=== PATIENT | male | born 1980 | race Caucasian/White ===

== ENCOUNTER 2016-09-17 08:09 | Emergency (ER) | payer OTHER ==
[2016-09-17 09:02] LABS: BASOPHILS 0.5 % (0.0-2.0); HEMATOCRIT 46.5 % (42.0-54.0); HEMOGLOBIN 16.2 g/dL (13.5-17.5); IMMATURE GRANULOCYTES 0.3 % (0-5); MCHC 34.8 g/dL (31.0-37.0); MCV 91.7 fL (80.0-100.0); MEAN PLATELET VOLUME 10.5 fL (7.4-10.4); MONOCYTES 7.5 % (2-11); NEUTROPHILS 37.7 % (40-80); PLATELET COUNT 199 10x3/uL (130-400); RBC 5.07 10x6/uL (4.20-6.10); RDW 12.4 % (11.5-14.5); WBC 7.5 10x3/uL (4.8-10.8)
[2016-09-17 09:32] LABS: APPEARANCE CLEAR (CLEAR); BILIRUBIN NEGATIVE (NEGATIVE); COLOR YELLOW (YELLOW); GLUCOSE NEGATIVE (NEGATIVE); KETONE NEGATIVE (NEGATIVE); LEUKOCYTE ESTERASE NEGATIVE (NEGATIVE); NITRITE NEGATIVE (NEGATIVE); PROTEIN TRACE mg/dL (NEGATIVE); UROBILINOGEN NORMAL (NORMAL)
[2016-09-17 09:34] LABS: WHITE CELLS - URINE 0-5 /hpf (0-5)
[2016-09-17 09:35] LABS: BACTERIA NONE SEEN /hpf (NONE SEEN); EPITHELIAL CELLS 0-5 /hpf (0-5); RED CELLS - URINE 0-5 /hpf (0-5)
== END 2016-09-17 11:38 | disposition home or self-care (01) ==
LOC: D.ER 08:09
PROVIDERS: Emergency Medicine
DX: R10.9 Unspecified abdominal pain (principal)

== ENCOUNTER → 2016-09-21 09:12 | Outpatient (CLI) | payer OTHER | END | disposition home or self-care (01) | LOC: D.MRI 09:12 | DX: M54.16 Radiculopathy, lumbar region (principal) ==

== ENCOUNTER 2018-02-07 19:03 | Emergency (ER) | payer SELFPAY ==
[~2018-02-07] VITALS: Ht 180.3 cm; Wt 127.3 kg
[2018-02-07 19:25] VITALS: Ht 180.3 cm; Wt 127.3 kg
[2018-02-07] MEDS ORDERED: ULTRAM50 MG PO (19:26)
[2018-02-07] MEDS ORDERED: ALLERGY MEDS (19:27)
[2018-02-07] MEDS ORDERED: ROBAXIN500 MG PO (19:27)
[2018-02-07] MEDS ORDERED: GENTAMICIN 0.3 %5 ML EACH EYE (22:19)
[2018-02-07 22:36] VITALS: BP 148/82
== END 2018-02-07 22:30 | disposition home or self-care (01) ==
LOC: D.ER 19:03
DX: K13.0 Diseases of lips (principal); H10.32 Unspecified acute conjunctivitis, left eye; F17.200 Nicotine dependence, unspecified, uncomplicated

== ENCOUNTER 2018-06-18 21:45 | Emergency (ER) | payer SELFPAY ==
[~2018-06-18] VITALS: Ht 180.3 cm; Wt 127.3 kg
[~2018-06-18 21:45] MED LIST: ALLERGY MEDS; GENTAMICIN 0.3 %5 ML EACH EYE; ROBAXIN500 MG PO; ULTRAM50 MG PO
[2018-06-18 21:56] VITALS: Ht 180.3 cm; Wt 127.3 kg
[2018-06-18 23:15] LABS: BASOPHILS 0.4 % (0-2); EOSINOPHILS 2.4 % (0-7); HEMATOCRIT 48.3 % (42.0-54.0); IMMATURE GRANULOCYTES 0.3 % (0-5); LYMPHOCYTES 25.1 % (15-50); MCHC 35.2 g/dL (31.0-37.0); MEAN PLATELET VOLUME 9.8 fL (7.4-10.4); MONOCYTES 8.3 % (2-11); NEUTROPHILS 63.5 % (40-80); RBC 5.31 10x6/uL (4.20-6.10); RDW 12.8 % (11.5-14.5); WBC 12.8 10x3/uL (4.8-10.8)
[2018-06-18 23:16] LABS: PLATELET COUNT 254 10x3/uL (130-400)
[2018-06-18 23:26] LABS: ALBUMIN 3.6 g/dL (3.4-5.0); ALKALINE PHOSPHATASE 64 U/L (46-116); ALT (SGPT) 35 U/L (10-68); BILIRUBIN - TOTAL 0.29 mg/dL (0.2-1.3); CALC OSMOLALITY 273 mosm/kg (275-300); CALCIUM 8.6 mg/dL (8.5-10.1); CARBON DIOXIDE 28.4 mmol/L (21.0-32.0); CHLORIDE - SERUM 101 mmol/L (98-107); CREATININE - SERUM 0.9 mg/dL (0.6-1.3); GLUCOSE 99 mg/dL (74-106); POTASSIUM - SERUM 3.9 mmol/L (3.5-5.1); PROTEIN - SERUM 7.5 g/dL (6.4-8.2); SODIUM 137 mmol/L (136-145); UREA NITROGEN 12 mg/dL (7-18); eGFR NON AFRICAN AMERICAN > 90 mL/min (90-120)
[2018-06-18] MEDS ORDERED: CLEOCIN HCL300 MG PO (23:29)
[2018-06-18] MEDS ORDERED: ULTRAM50 MG PO (23:31)
[2018-06-19 00:23] VITALS: BP 153/87
== END 2018-06-19 00:25 | disposition home or self-care (01) ==
LOC: D.ER 21:45
PROVIDERS: Family Medicine
DX: L02.416 Cutaneous abscess of left lower limb (principal); F17.200 Nicotine dependence, unspecified, uncomplicated

== ENCOUNTER 2018-08-08 17:41 | Emergency (ER) | payer SELFPAY ==
[~2018-08-08] VITALS: Ht 180.3 cm; Wt 129.5 kg
[~2018-08-08 17:41] MED LIST changes: +CLEOCIN HCL300 MG PO
[2018-08-08 17:56] VITALS: Ht 180.3 cm; Wt 129.5 kg
[2018-08-08] MEDS ORDERED: FEXOFENADINE HC60 MG PO (17:58)
[2018-08-08] MEDS ORDERED: SEROQUEL50 MG PO (17:58)
[2018-08-08 18:30] LABS: BASOPHILS 0.1 % (0-2); EOSINOPHILS 1.2 % (0-7); HEMATOCRIT 48.1 % (42.0-54.0); HEMOGLOBIN 17.1 g/dL (13.5-17.5); IMMATURE GRANULOCYTES 0.2 % (0-5); LYMPHOCYTES 12.3 % (15-50); MCH 32.1 pg (26.0-34.0); MCHC 35.6 g/dL (31.0-37.0); MCV 90.2 fL (80.0-100.0); MEAN PLATELET VOLUME 10.2 fL (7.4-10.4); MONOCYTES 5.2 % (2-11); RBC 5.33 10x6/uL (4.20-6.10); RDW 12.6 % (11.5-14.5); WBC 9.7 10x3/uL (4.8-10.8)
[2018-08-08 18:32] LABS: PLATELET COUNT 191 10x3/uL (130-400)
[2018-08-08 18:45] LABS: ALBUMIN 3.2 g/dL (3.4-5.0); ALKALINE PHOSPHATASE 54 U/L (46-116); ALT (SGPT) 37 U/L (10-68); BILIRUBIN - TOTAL 0.85 mg/dL (0.2-1.3); CALC OSMOLALITY 274 mosm/kg (275-300); CALCIUM 7.7 mg/dL (8.5-10.1); CARBON DIOXIDE 24.8 mmol/L (21.0-32.0); CHLORIDE - SERUM 102 mmol/L (98-107); CREATININE - SERUM 0.9 mg/dL (0.6-1.3); GLUCOSE 110 mg/dL (74-106); POTASSIUM - SERUM 3.4 mmol/L (3.5-5.1); PROTEIN - SERUM 6.7 g/dL (6.4-8.2); SODIUM 137 mmol/L (136-145); UREA NITROGEN 13 mg/dL (7-18); eGFR NON AFRICAN AMERICAN > 90 mL/min (90-120)
[2018-08-08 18:58] LABS: CKMB 1.1 U/L (0.0-3.6); LIPASE 56 U/L (73-393); TROPONIN-I < 0.017 ng/mL (0.000-0.060)
[2018-08-08 20:27] LABS: APPEARANCE CLEAR (CLEAR); BILIRUBIN NEGATIVE (NEGATIVE); COLOR YELLOW (YELLOW); GLUCOSE NEGATIVE (NEGATIVE); KETONE NEGATIVE (NEGATIVE); NITRITE NEGATIVE (NEGATIVE); PROTEIN NEGATIVE (NEGATIVE); UROBILINOGEN NORMAL (NORMAL)
[2018-08-08 21:04] LABS: UDS - AMPHET POSITIVE QUAL (NEGATIVE); UDS - BARB NEGATIVE QUAL (NEGATIVE); UDS - BENZO NEGATIVE QUAL (NEGATIVE); UDS - COCAINE NEGATIVE QUAL (NEGATIVE); UDS - OPIATE NEGATIVE QUAL (NEGATIVE); UDS - PCP NEGATIVE QUAL (NEGATIVE); UDS - THC POSITIVE QUAL (NEGATIVE)
[2018-08-08] MEDS ORDERED: EC-NAPROSYN500 MG PO (22:08)
[2018-08-08] MEDS ORDERED: OMEPRAZOLE20 M1 PO (22:08)
[2018-08-08 22:21] VITALS: BP 144/72
== END 2018-08-08 22:21 | disposition home or self-care (01) ==
LOC: D.ER 17:41
PROVIDERS: Emergency Medicine
DX: K82.9 Disease of gallbladder, unspecified (principal); R10.13 Epigastric pain; R05 Cough; R07.9 Chest pain, unspecified; F17.200 Nicotine dependence, unspecified, uncomplicated

== ENCOUNTER 2018-08-13 17:36 | Emergency (ER) | payer SELFPAY ==
[~2018-08-13] VITALS: Ht 180.3 cm; Wt 127.3 kg
[~2018-08-13 17:36] MED LIST changes: +EC-NAPROSYN500 MG PO; +FEXOFENADINE HC60 MG PO; +OMEPRAZOLE20 M1 PO; +SEROQUEL50 MG PO
[2018-08-13 17:52] VITALS: Ht 180.3 cm; Wt 127.3 kg
[2018-08-13] MEDS ORDERED: BACLOFEN20 M1 PO (19:41)
[2018-08-13] MEDS ORDERED: VOLTAREN75 MG PO (19:41)
[2018-08-13 20:20] VITALS: BP 144/84
== END 2018-08-13 20:26 | disposition home or self-care (01) ==
LOC: D.ER 17:36
DX: R09.1 Pleurisy (principal); F17.200 Nicotine dependence, unspecified, uncomplicated

== ENCOUNTER 2018-12-17 20:42 | Emergency (ER) | payer MEDICAID ==
[~2018-12-17] VITALS: Ht 180.3 cm; Wt 127.3 kg
[~2018-12-17 20:42] MED LIST changes: +BACLOFEN20 M1 PO; +VOLTAREN75 MG PO
[2018-12-17 20:59] VITALS: Ht 180.3 cm; Wt 127.3 kg
[2018-12-17] MEDS ORDERED: BACLOFEN20 M1 PO (22:14)
[2018-12-17] MEDS ORDERED: VOLTAREN75 MG PO (22:14)
[2018-12-17 23:21] VITALS: BP 147/82
== END 2018-12-17 23:28 | disposition home or self-care (01) ==
LOC: D.ER 20:42
DX: M25.512 Pain in left shoulder (principal); M75.92 Shoulder lesion, unspecified, left shoulder

== ENCOUNTER 2019-12-03 00:43 | Emergency (ER) | payer SELFPAY ==
[~2019-12-03] VITALS: Ht 180.3 cm; Wt 131.8 kg
[2019-12-03 00:48] VITALS: Ht 180.3 cm; Wt 131.8 kg
[2019-12-03 01:14] LABS: BASOPHILS 0.6 % (0-2); EOSINOPHILS 4.4 % (0-7); HEMATOCRIT 49.7 % (42.0-54.0); IMMATURE GRANULOCYTES 0.3 % (0-5); MCH 31.7 pg (26.0-34.0); MCHC 34.2 g/dL (31.0-37.0); MCV 92.7 fL (80.0-100.0); MEAN PLATELET VOLUME 9.7 fL (7.4-10.4); MONOCYTES 9.7 % (2-11); RBC 5.36 10x6/uL (4.20-6.10); RDW 12.6 % (11.5-14.5); WBC 8.9 10x3/uL (4.8-10.8)
[2019-12-03 01:15] LABS: PLATELET COUNT 233 10x3/uL (130-400)
[2019-12-03 01:25] LABS: APTT 25.8 SECONDS (22.8-39.4); CALC OSMOLALITY 276 mosm/kg (275-300); CALCIUM 8.8 mg/dL (8.5-10.1); CARBON DIOXIDE 29.1 mmol/L (21.0-32.0); CHLORIDE - SERUM 104 mmol/L (98-107); CREATININE - SERUM 1.1 mg/dL (0.6-1.3); GLUCOSE 103 mg/dL (74-106); INR 0.97 (0.85-1.17); POTASSIUM - SERUM 3.7 mmol/L (3.5-5.1); PROTIME 12.8 SECONDS (11.6-15.0); SODIUM 139 mmol/L (136-145); UREA NITROGEN 11 mg/dL (7-18); eGFR NON AFRICAN AMERICAN 79 mL/min (90-120)
[2019-12-03 01:34] LABS: D-DIMER-QUANTITATIVE < 0.27 ug/mLFEU (0.20-0.54)
[2019-12-03 01:42] LABS: ALBUMIN 3.7 g/dL (3.4-5.0); ALKALINE PHOSPHATASE 90 U/L (30-120); ALT (SGPT) 36 U/L (10-68); CKMB 3.8 U/L (0.0-3.6); CREATINE KINASE 721 UL (21-232); PRO BNP 11 pg/mL (0-125); PROTEIN - SERUM 7.5 g/dL (6.4-8.2); TROPONIN-I < 0.017 ng/mL (0.000-0.060)
[2019-12-03 03:41] VITALS: BP 164/92
[2019-12-03] MEDS ORDERED: NORVASC5 MG PO (04:08)
[2019-12-03] MEDS ORDERED: MUCINEX600 MG PO (04:08)
[2019-12-03] MEDS ORDERED: AUGMENTIN 875-11 TAB PO (04:08)
== END 2019-12-03 04:14 | disposition home or self-care (01) ==
LOC: D.ER 00:43
PROVIDERS: Family Medicine
DX: J20.9 Acute bronchitis, unspecified (principal); I10 Essential (primary) hypertension; K21.9 Gastro-esophageal reflux disease without esophagitis; Z72.0 Tobacco use; R05 Cough; R06.02 Shortness of breath; M54.9 Dorsalgia, unspecified